=== PATIENT | male | born 1995 | race Caucasian/White ===

== ENCOUNTER 2024-02-26 15:31 | Inpatient (IN) | payer OTHER ==
[~2024-02-26] VITALS: Ht 172.7 cm; Wt 81.8 kg
[2024-02-26 16:19] LABS: BASOPHILS % (AUTO) 0.5 % (0.0-2.0); EOSINOPHILS % (AUTO) 0.5 % (1.0-6.0); HEMATOCRIT 46.9 % (41-53); HEMOGLOBIN 16.3 g/dL (13.5-17.5); LYMPHOCYTES # (AUTO) 1.2 K/uL (1.0-4.8); LYMPHOCYTES % (AUTO) 21.6 % (22.0-44.0); MEAN CORPUSCULAR HGB CONC 34.8 G/dL (31.0-37.0); MEAN CORPUSCULAR VOLUME 92 fL (80-100); MONOCYTES # (AUTO) 0.6 K/uL (0.1-1.0); MONOCYTES % (AUTO) 10.5 % (2.0-9.0); NEUTROPHILS # (AUTO) 3.7 K/uL (1.8-7.7); NEUTROPHILS % (AUTO) 66.9 % (40.0-70.0); PLATELET COUNT (AUTO) 238 K/uL (150-450); RED BLOOD CELL COUNT(AUTO) 5.09 MIL/uL (4.50-5.90); WHITE BLOOD COUNT (AUTO) 5.6 K/uL (4.5-11.0)
[2024-02-26 16:28] LABS: ANION GAP 20 mmol/L (8-16); CALCIUM, TOTAL 9.2 mg/dL (8.8-10.5); CARBON DIOXIDE 17 mmol/L (22-29); CHLORIDE 98 mmol/L (98-107); GLOMERULAR FILTR. RATE CALC > 60 mL/min (>60); GLUCOSE,RANDOM 76 mg/dL (70-110); POTASSIUM 3.5 mmol/L (3.5-5.1); SODIUM SERUM 135 mmol/L (136-145); UREA NITROGEN, BLOOD 4 mg/dL (7-18)
[2024-02-26 16:36] LABS: ALCOHOL, BLOOD (SERUM) < 3 mg/dL (0-10)
[2024-02-26] MEDS: LORazepam 2 MG/ML VIAL IM ONE (18:47)
[2024-02-26] MEDS: HALOPERIDOL LACTATE 5 MG/ML VIAL IM ONE (18:47)
[2024-02-26] MEDS ORDERED: ACETAMINOPHEN 325 MG TABLET PO PRN (19:30)
[2024-02-26] MEDS ORDERED: ONDANSETRON HCL 4 MG/2 ML VIAL IVP PRN (19:30)
[2024-02-26 20:30] VITALS: O2SAT 97
[2024-02-26] MEDS: DEXTROSE 5%-LACTATED RINGERS 1,000 ML IV ONE (20:36)
[2024-02-26 20:54] LABS: LACTIC ACID 0.9 mmol/L (0.4-2.0)
[2024-02-26 21:58] VITALS: BP 127/87; PULSE 67; RESP 18; TEMP 98; O2SAT 99
[2024-02-26] MEDS: 1: MAGNESIUM SULFATE 2 GM, MVI, ADULT NO.1 WITH VIT K 10 ML, THIAMINE 100 MG, FOLIC ACID IV SCH (22:07)
[2024-02-26] MEDS: HEPARIN SODIUM,PORCINE 5,000 UNITS/ML VIAL SQ SCH (23:38)
[2024-02-27 05:05] VITALS: BP 110/73; PULSE 66; RESP 18; TEMP 97.6; O2SAT 99
[2024-02-27] MEDS ORDERED: SODIUM CHLORIDE 0.9% 1,000 ML ONE (09:09)
[2024-02-27 20:33] VITALS: BP 112/64; PULSE 83; RESP 18; TEMP 98.5; O2SAT 97
[2024-02-28 04:45] VITALS: BP 96/51; PULSE 65; RESP 18; TEMP 97.8; O2SAT 99
[2024-02-28] MEDS: DEXTROSE 5%-LACTATED RINGERS 1,000 ML IV SCH (12:00)
[2024-02-28 15:45] LABS: PH,URINE DRUG SCREEN 6.5 (5.0-8.0)
[2024-02-28] MEDS ORDERED: HALOPERIDOL LACTATE 5 MG/ML VIAL IM ONE (16:00)
[2024-02-28 16:08] LABS: ALCOHOL, URINE DRUG SCREEN NEGATIVE (NEGATIVE); AMPHET/METH SCREEN,URINE NEGATIVE (NEGATIVE); BARBITURATE SCREEN, URINE NEGATIVE (NEGATIVE); BENZODIAZEPINES SCREEN,URINE NEGATIVE (NEGATIVE); CANNABINOID SCREEN,URINE NEGATIVE (NEGATIVE); COCAINE SCREEN,URINE NEGATIVE (NEGATIVE); METHADONE SCREEN, URINE NEGATIVE (NEGATIVE); OPIATE SCREEN,URINE NEGATIVE (NEGATIVE); PHENCYCLIDINE SCREEN,URINE NEGATIVE (NEGATIVE)
[2024-02-29 08:00] VITALS: RESP 15
[2024-02-29] MEDS ORDERED: MIRT-89 PO (11:02)
[2024-02-29] MEDS ORDERED: MIRTAZAPINE 15 MG TABLET PO SCH (21:00)
== END 2024-02-29 18:35 | DRG 641 ==
LOC: EMS 15:31 → EDH 19:22 → 6N 21:50
PROVIDERS: ADMIT Internal Medicine; ATTEND Internal Medicine
DX: E86.0 Dehydration (principal); R62.7 Adult failure to thrive; E87.29 Other acidosis; I10 Essential (primary) hypertension; F17.200 Nicotine dependence, unspecified, uncomplicated; F29 Unspecified psychosis not due to a substance or known physiological condition; Z91.199 Patient's noncompliance with other medical treatment and regimen due to unspecified reason; Z88.8 Allergy status to other drugs, medicaments and biological substances; Z68.27 Body mass index [BMI] 27.0-27.9, adult
CPT/HCPCS: 80048; 80307; 83605; 85025; 99285; G0480; J1630; J1644; J2060; J3411; J3475; J3490; J7030